=== PATIENT | male | born 1930 | race Caucasian/White ===

== ENCOUNTER 2017-12-06 16:50 | Inpatient (IN) | payer MEDICARE, BC ==
[~2017-12-06] VITALS: Ht 177.8 cm; Wt 85.3 kg
[2017-12-06] MEDS ORDERED: LORA-258 PO (17:14)
[2017-12-06] MEDS ORDERED: BUPR150T5 PO (17:14)
[2017-12-06] MEDS ORDERED: ATOR10TA PO (17:14)
[2017-12-06] MEDS ORDERED: ACET-2605 PO (17:14)
[2017-12-06] MEDS ORDERED: [UNRECOGNIZED DRUG - CODE] PO (17:14)
[2017-12-06] MEDS ORDERED: TERA2CAP4 PO (17:14)
[2017-12-06] MEDS ORDERED: ASPI81TA31 PO (17:14)
[2017-12-06] MEDS ORDERED: CHOL100045 PO (17:14)
[2017-12-06] MEDS ORDERED: ASCO500C18 PO (17:14)
[2017-12-06] MEDS ORDERED: GABA600T2 PO (17:14)
[2017-12-06] MEDS ORDERED: CHLO25TA2 PO (17:14)
[2017-12-06] MEDS ORDERED: PREG200C PO (17:14)
[2017-12-06] MEDS ORDERED: MV-M1CAP18 PO (17:14)
[2017-12-06] MEDS ORDERED: LISI30TA4 PO (17:14)
[2017-12-06 17:32] LABS: BASOPHILS % (AUTO) 0.4 % (0.0-2.0); EOSINOPHILS # (AUTO) 0.1 K/uL (0.0-0.7); EOSINOPHILS % (AUTO) 1.4 % (0.0-7.0); HEMATOCRIT 34.3 % (36.7-47.1); HEMOGLOBIN 11.8 g/dL (12.5-16.3); LYMPHOCYTES # (AUTO) 0.8 K/uL (20.0-40.0); MEAN CORPUSCULAR HEMOGLOBIN 30.7 uug (23.8-33.4); MEAN CORPUSCULAR HGB CONC 34 g/dL (32.5-36.3); MEAN CORPUSCULAR VOLUME 89.6 fL (73.0-96.2); MONOCYTES # (AUTO) 0.4 K/uL (2.0-10.0); MONOCYTES % (AUTO) 7.5 % (0.0-11.0); NEUTROPHILS # (AUTO) 3.7 K/uL (1.8-8.9); NEUTROPHILS % (AUTO) 74.7 % (38.5-71.5); PLATELET COUNT (AUTO) 135 K/uL (152-348); RED BLOOD CELL COUNT(AUTO) 3.83 MIL/uL (4.06-5.63)
[2017-12-06 17:40] LABS: CARBON DIOXIDE 30 mmol/L (21-32); CHLORIDE 102 mmol/L (98-107); CREATININE 2.5 mg/dL (0.6-1.3); GLUCOSE 98 mg/dL (74-106); POTASSIUM 3.2 mmol/L (3.5-5.1); UREA NITROGEN, BLOOD 35 mg/dL (7-18)
[2017-12-06 17:45] LABS: ALANINE AMINOTRANSFERASE 22 U/L (16-63); ALKALINE PHOSPHATASE 54 U/L (50-136); ASPARTATE AMINOTRANSFERASE 16 U/L (15-37); BILIRUBIN,DIRECT 0.2 mg/dL (0.0-0.2); BILIRUBIN,TOTAL 0.9 mg/dL (0.2-1.0); TOTAL PROTEIN, SERUM 6.5 g/dL (6.4-8.2)
--- NOTE | 2017-12-06 18:19 | NUR ---
Patient is resting comfortably in bed with eyes closed, NAD noted. family at the bedside.
--- NOTE | 2017-12-06 19:18 | NUR ---
HANDSOFF REPORT GIVEN TO DAVID BERTRAND.
--- NOTE | 2017-12-06 19:22 | NUR ---
RECEIVED SHIFT REPORT FROM JERZY PAULINO. PT IN BED, DOES NOT APPEAR TO BE IN ANY APPARENT DISTRESS AT THIS TIME. ER MD AT BEDSIDE.
--- NOTE | 2017-12-06 19:31 | NUR ---
XRAY AT BEDSIDE.
--- NOTE | 2017-12-06 19:35 | NUR ---
US TECH AT BEDSIDE.
--- NOTE | 2017-12-06 19:51 | NUR ---
PT TAKEN TO RADIOLOGY FOR CT SCAN BY TRANS/RN.
[2017-12-06] MEDS ORDERED: IV NORMAL SALINE 1000 ML BAG IV ONE (20:00)
[2017-12-06 20:02] LABS: ETHANOL < 3 MG/DL (0-0)
--- NOTE | 2017-12-06 20:09 | NUR ---
PT BACK IN DEPARTMENT FROM RADIOLOGY. BUGGY MAN AT BEDSIDE.
[2017-12-06 20:16] LABS: ACETAMINOPHEN 3.2 ug/mL (10-30)
[2017-12-06 20:20] LABS: THYROID STIMULATING HORMONE 0.302 mIU/mL (0.358-3.740)
--- NOTE | 2017-12-06 20:34 | NUR ---
PAGED [facility] FOR PANEL CALL.
--- NOTE | 2017-12-06 21:07 | NUR ---
PAGED EPIC PANEL 2ND REQUEST. AWAITING CALL BACK.
--- NOTE | 2017-12-06 21:08 | NUR ---
RECEIVED CALL BACK FROM TARIQ WEAVER DNP FOR EPIC PANEL.
--- NOTE | 2017-12-06 21:12 | NUR ---
ER SPOKE W/ TARIQ WEAVER, BRIJESH, RE PT ADMISSION.
--- NOTE | 2017-12-06 21:16 | NUR ---
GAVE ADMITTING REPORT TO JERZY SELBY.
[2017-12-06 21:30] LABS: *BILIRUBIN,URIN NEGATIVE (NEGATIVE); *BLOOD, URINE NEGATIVE (NEGATIVE); *CLARITY,URINE CLEAR (CLEAR); *COLOR,URINE YELLOW (YELLOW); *KETONES,URINE NEGATIVE (NEGATIVE); *PROTEIN,URINE 1+ (NEGATIVE); *UROBILINOGEN,URINE 0.2 E.U./dl (NORMAL); LEUKOCYTE ESTERASE ,URINE NEGATIVE (NEGATIVE); NITRITE, URINE NEGATIVE (NEGATIVE); PH,URINE 5.5 (5.0-8.0); UGLUCOSE NEGATIVE (NEGATIVE)
[2017-12-06] MEDS ORDERED: methylPREDNISolone SOD SUCC 125 MG/2 ML VIAL ONE (21:33)
[2017-12-06 21:42] LABS: *AMPHETAMINE, URINE NEGATIVE (NEGATIVE); *BARBITURATE, URINE NEGATIVE (NEGATIVE); *CANNABINOID, URINE NEGATIVE (NEGATIVE); *COCCAINE, URINE NEGATIVE (NEGATIVE); *OPIATE, URINE NEGATIVE (NEGATIVE); *PHENCYCLIDINE SCREEN,URINE NEGATIVE (NEGATIVE)
[2017-12-06 21:47] LABS: MUCUS,URINE MODERATE /LPF (0-FEW); WBC,URINE 0-3 /HPF (0-3)
--- NOTE | 2017-12-06 21:47 | NUR ---
Pt. admitted to TELE ROOM 220, under care of Dr. TARIQ WEAVER. Belongs List completed.
[2017-12-06 22:00] VITALS: BP 109/53
--- NOTE | 2017-12-06 22:00 | NUR ---
Received patient from ER in stable condition via stretcher. Patient admitted to Telemetry under Dr. Alexander. Admit Dx Hypotension. Vitals stable upon admission. Sinus rhythm on tele monitor with Bundle branch block. Pertinent assessment completed. A/Ox4 & able to make all needs known. Noted with left AC 20G IV site which is patent & flushing well. Caregiver currently at the bedside. Bed placed in low position, locked, x2 side rails up. Call light within reach. Will continue to monitor through shift.
[2017-12-07] VITALS (7 sets, daily range): BP systolic 87–141; BP diastolic 31–68
[2017-12-07] MEDS ORDERED: ONDANSETRON 4 MG/2 ML VIAL IV PRN (00:30)
[2017-12-07] MEDS ORDERED: Z GUARD REMEDY PASTE 57 GM TUBE TOP PRN (00:30)
[2017-12-07] MEDS ORDERED: ACETAMINOPHEN 325 MG TABLET PO PRN (00:30)
[2017-12-07] MEDS ORDERED: MAGNESIUM HYDROXIDE 30 ML LIQUID UDC PO PRN (00:30)
[2017-12-07] MEDS ORDERED: IV NS 1000 ML 1,000 ML IV PRN (01:00)
[2017-12-07 06:16] LABS: BASOPHILS % (AUTO) 0.4 % (0.0-2.0); EOSINOPHILS % (AUTO) 0.5 % (0.0-7.0); HEMATOCRIT 34.3 % (36.7-47.1); HEMOGLOBIN 11.8 g/dL (12.5-16.3); LYMPHOCYTES # (AUTO) 0.7 K/uL (20.0-40.0); LYMPHOCYTES % (AUTO) 9.4 % (20.5-51.5); MEAN CORPUSCULAR HEMOGLOBIN 30.8 uug (23.8-33.4); MEAN CORPUSCULAR HGB CONC 35 g/dL (32.5-36.3); MEAN CORPUSCULAR VOLUME 89.2 fL (73.0-96.2); MONOCYTES # (AUTO) 0.6 K/uL (2.0-10.0); MONOCYTES % (AUTO) 7.7 % (0.0-11.0); NEUTROPHILS # (AUTO) 6.2 K/uL (1.8-8.9); PLATELET COUNT (AUTO) 136 K/uL (152-348); RED BLOOD CELL COUNT(AUTO) 3.84 MIL/uL (4.06-5.63); WHITE BLOOD COUNT (AUTO) 7.6 K/uL (3.6-10.2)
[2017-12-07 06:24] LABS: ALANINE AMINOTRANSFERASE 19 U/L (16-63); ALKALINE PHOSPHATASE 50 U/L (50-136); ASPARTATE AMINOTRANSFERASE 18 U/L (15-37); BILIRUBIN,TOTAL 0.6 mg/dL (0.2-1.0); CARBON DIOXIDE 26 mmol/L (21-32); CHLORIDE 104 mmol/L (98-107); CHOLESTEROL 105 mg/dL (<200); CREATININE 1.8 mg/dL (0.6-1.3); GLUCOSE 125 mg/dL (74-106); HDL CHOLESTEROL 35 mg/dL (40-60); MAGNESIUM 1.6 mg/dL (1.8-2.4); PHOSPHOROUS 2.6 mg/dL (2.5-4.9); POTASSIUM 3.5 mmol/L (3.5-5.1); TOTAL PROTEIN, SERUM 6.2 g/dL (6.4-8.2); TRIGLYCERIDES 65 MG/DL (30-150); UREA NITROGEN, BLOOD 29 mg/dL (7-18)
--- NOTE | 2017-12-07 06:52 | NUR ---
Patient slept well during the night. No acute distress noted. Sinus Rhythm on tele monitor with bundle branch blocks. Caregiver remained at bedside during the night. All needs attended to. All meds administered per MD order. Safety measures implemented. Call light in reach. Will endorse to oncoming shift.
--- NOTE | 2017-12-07 07:30 | NUR ---
Report received.Pt received in bed,awake,alert,slightly forgetful.Denies pain,discomfort.No distress noted.Assisted from bed to chair.Private caregiver at bedside.On room air,no SOB noted.SR on monitor with BBB.Will continue to monitor.
[2017-12-07] MEDS ORDERED: LISINOPRIL 20 MG TABLET PO SCH (09:00)
[2017-12-07] MEDS ORDERED: PREGABALIN 100 MG CAPSULE PO SCH ×2 (09:00)
[2017-12-07] MEDS ORDERED: ENOXAPARIN SODIUM 40 MG/0.4 ML DISP.SYRIN SQ SCH (09:00)
--- NOTE | 2017-12-07 10:00 | NUR ---
Seen,examined by ABBIE Dominguez.Pt family at bedside,updated on pt condition.
[2017-12-07] MEDS: TERAZOSIN 2 MG CAPSULE PO SCH ×2 (10:22→17:00)
[2017-12-07] MEDS: ASPIRIN 81 MG TAB.CHEW PO SCH (10:22)
[2017-12-07] MEDS: LORAZEPAM 0.5 MG TABLET PO SCH ×3 (10:22→17:00)
[2017-12-07] MEDS: buPROPion SR 150 MG TABLET.SA PO SCH (10:22)
[2017-12-07] MEDS: GABAPENTIN 300 MG CAPSULE PO SCH (10:23)
[2017-12-07] MEDS ORDERED: NITROFURANTOIN/NITROFURAN MAC 100 MG CAPSULE PO SCH (11:30)
[2017-12-07] MEDS ORDERED: LEVOFLOXACIN 250 MG TABLET PO SCH (18:15)
--- NOTE | 2017-12-07 19:50 | NUR ---
Pt alert, oriented and pleasant. Discussed plan of care. Pt private caregiver at bedside. Safe environment and comfort measures implemented.
[2017-12-07] MEDS ORDERED: ATORVASTATIN 10 MG TABLET PO SCH (21:00)
[2017-12-07] MEDS: SIMETHICONE 80 MG TAB.CHEW PO PRN (23:04)
[2017-12-08 03:42] VITALS: BP 140/70
[2017-12-08] MEDS: SIMETHICONE 80 MG TAB.CHEW PO PRN (05:05)
[2017-12-08] MEDS: GABAPENTIN 300 MG CAPSULE PO SCH (06:03)
--- NOTE | 2017-12-08 06:06 | NUR ---
Pt awake and alert. Complains of severe pain on bilateral lower extremities at this time. Pt stated rate of 10/10 pain on pain scale, intensity sharp and throbbing. Administered 0900 Gabapentin 600 mg PO early. Tele SR with some bundle branch blocks with HR 68. Will continue to monitor closely.
[2017-12-08 06:15] LABS: BASOPHILS % (AUTO) 0.6 % (0.0-2.0); EOSINOPHILS # (AUTO) 0.1 K/uL (0.0-0.7); EOSINOPHILS % (AUTO) 2.6 % (0.0-7.0); HEMATOCRIT 32.1 % (36.7-47.1); HEMOGLOBIN 11.1 g/dL (12.5-16.3); LYMPHOCYTES # (AUTO) 0.9 K/uL (20.0-40.0); LYMPHOCYTES % (AUTO) 23.5 % (20.5-51.5); MEAN CORPUSCULAR HEMOGLOBIN 30.8 uug (23.8-33.4); MEAN CORPUSCULAR HGB CONC 35 g/dL (32.5-36.3); MEAN CORPUSCULAR VOLUME 89.3 fL (73.0-96.2); MONOCYTES # (AUTO) 0.4 K/uL (2.0-10.0); NEUTROPHILS # (AUTO) 2.6 K/uL (1.8-8.9); NEUTROPHILS % (AUTO) 64.3 % (38.5-71.5); PLATELET COUNT (AUTO) 109 K/uL (152-348)
[2017-12-08 06:33] LABS: CARBON DIOXIDE 24 mmol/L (21-32); CHLORIDE 106 mmol/L (98-107); CREATININE 1.4 mg/dL (0.6-1.3); GLUCOSE 100 mg/dL (74-106); MAGNESIUM 1.6 mg/dL (1.8-2.4); PHOSPHOROUS 2.4 mg/dL (2.5-4.9); POTASSIUM 3.6 mmol/L (3.5-5.1); UREA NITROGEN, BLOOD 23 mg/dL (7-18)
--- NOTE | 2017-12-08 08:30 | NUR ---
RECEIVED PATIENT AWAKE ALERT AND ORIENTED WITH HIS PRIVATE [employer]PUT[employer] SUPPORT SPECIALIST AT THE BEDSIDE REMAIN ON TELE MONITORING ORDERED WITH BBB DUE MEDICATIONS GIVEN MADE COMFORTABLE HE IS ON ROUTINE ATIVAN FOR ANXIETY GIVEN ORDERED AND WILL CONTINUE TO OBSERVE.
[2017-12-08] MEDS: ASPIRIN 81 MG TAB.CHEW PO SCH (08:46)
[2017-12-08] MEDS: LORAZEPAM 0.5 MG TABLET PO SCH (08:46)
[2017-12-08] MEDS: buPROPion SR 150 MG TABLET.SA PO SCH (08:46)
[2017-12-08 08:47] VITALS: BP 132/71
[2017-12-08] MEDS: TERAZOSIN 2 MG CAPSULE PO SCH (08:47)
[2017-12-08] MEDS ORDERED: ENOXAPARIN SODIUM 30 MG/0.3 ML DISP.SYRIN SUBCUT SCH (09:00)
[2017-12-08] MEDS ORDERED: MAGNESIUM OXIDE 250 MG TABLET PO ONE (10:00)
[2017-12-08] MEDS ORDERED: Levofloxacin PO (10:11)
--- NOTE | 2017-12-08 10:30 | NUR ---
PATIENT SEEN AND EXAMINED BY DERRICK JEWELRY SETTER WITH ORDER TO DISCHARGE PATIENT HOME TODAY PATIENTS ILLEEN HERE AND STATED WILL TAKE PATIENT HOME NEW ORDER TO REPLACE MAG TODAY BEFORE DISCHARGE NOTED.
--- NOTE | 2017-12-08 12:00 | NUR ---
PATIENT DISCHARGED WAS SEEN BY THE [facility] PHARMACIST DISCHARGE INSTRUCTIONS AND PRESCRIPTIONS GIVEN AND WAS INSTRUCTED TO FOLLOW UP WITH DR CASILLAS STATED HAS APPOINTMENT FOR SUNDAY WILL FOLLOW UP ON HIS BLOOD PRESSURE MEDICATIONS AND URINARY TRACT INFECTION INCREASE FLUID INTAKE AND THEY EXPRESSED UNDERSTANDING.
== END 2017-12-08 12:00 | disposition home or self-care (01) | DRG 683 ==
LOC: ER 16:51 → TELE 21:41
PROVIDERS: ADMIT Nurse Practitioner Acute Care; ATTEND Registered Nurse
DX: N17.0 Acute kidney failure with tubular necrosis (principal); N39.0 Urinary tract infection, site not specified; E86.0 Dehydration; I95.2 Hypotension due to drugs; T50.2X5A Adverse effect of carbonic-anhydrase inhibitors, benzothiadiazides and other diuretics, initial encounter; T46.4X5A Adverse effect of angiotensin-converting-enzyme inhibitors, initial encounter; Y92.019 Unspecified place in single-family (private) house as the place of occurrence of the external cause; E78.5 Hyperlipidemia, unspecified; D63.8 Anemia in other chronic diseases classified elsewhere; N18.9 Chronic kidney disease, unspecified; F41.9 Anxiety disorder, unspecified; E03.9 Hypothyroidism, unspecified; E11.65 Type 2 diabetes mellitus with hyperglycemia; F32.9 Major depressive disorder, single episode, unspecified; E87.6 Hypokalemia; E83.42 Hypomagnesemia; F03.90 Unspecified dementia, unspecified severity, without behavioral disturbance, psychotic disturbance, mood disturbance, and anxiety; Z86.73 Personal history of transient ischemic attack (TIA), and cerebral infarction without residual deficits; Z88.0 Allergy status to penicillin; E11.22 Type 2 diabetes mellitus with diabetic chronic kidney disease; I12.9 Hypertensive chronic kidney disease with stage 1 through stage 4 chronic kidney disease, or unspecified chronic kidney disease; E11.42 Type 2 diabetes mellitus with diabetic polyneuropathy; Z85.828 Personal history of other malignant neoplasm of skin; Z91.81 History of falling; Z87.820 Personal history of traumatic brain injury; Z95.0 Presence of cardiac pacemaker; N40.0 Benign prostatic hyperplasia without lower urinary tract symptoms; I70.0 Atherosclerosis of aorta; E88.09 Other disorders of plasma-protein metabolism, not elsewhere classified
CPT/HCPCS: 36415; 70030-TC; 70450; 71045; 76770; 80307; 82533; 83605; 83735; 84100; 84443; 85025; 85730; 87040; 87086; 93005; 93307; A4663; G0480; G0480-TC; J1650; J2930; J7030